=== PATIENT | female | born 1945 | race Caucasian/White ===

== ENCOUNTER 2017-11-01 11:16 | Emergency (ER) | payer OTHER ==
[~2017-11-01 11:16] MED LIST: DESL5TAB38 PO; EZET10 PO; LOSA1TAB42 PO; OMEP20CA10 PO
[2017-11-01] MEDS ORDERED: BENZONATATE 100 MG CAPSULE PO ONE (11:32)
== END 2017-11-01 12:12 | disposition home or self-care (01) ==
LOC: EDH 11:16
DX: J06.9 Acute upper respiratory infection, unspecified (principal); I10 Essential (primary) hypertension
CPT/HCPCS: 71046; 87880

== ENCOUNTER 2018-03-02 11:36 | Emergency (ER) | payer OTHER ==
[2018-03-02] MEDS ORDERED: ASPIRIN 325 MG TABLET ONE (11:41)
[2018-03-02] MEDS ORDERED: DEXAMETHASONE SOD PHOSPHATE 10MG/ML 1ML VIAL ONE (11:55)
[2018-03-02] MEDS ORDERED: SODIUM CHLORIDE 0.9% 50 ML IV ONE (11:56)
[2018-03-02] MEDS ORDERED: CEFTRIAXONE SODIUM 1 GM ONE (11:56)
[2018-03-02] MEDS ORDERED: IPRATROPIUM/ALBUTEROL SULFATE 3 ML SOLUTION IH ONE (12:12)
[2018-03-02 12:17] LABS: BASOPHILS % (AUTO) 0.6 % (0.0-5.0); EOSINOPHILS % (AUTO) 1.2 % (0.0-8.0); LYMPHOCYTES % (AUTO) 29.4 % (21.0-51.0); MEAN CORPUSCULAR HEMOGLOBIN 31.8 pg (27.0-33.0); MEAN CORPUSCULAR VOLUME 90.8 fL (79-99); MONOCYTES % (AUTO) 8.6 % (3.0-13.0); NEUTROPHILS % (AUTO) 60.2 % (40.0-77.0); PLATELET COUNT (AUTO) 186 K/uL (130-400); RED BLOOD CELL COUNT(AUTO) 4.19 MIL/uL (4.00-5.50); RED CELL DISTRIBUTION WIDTH 12.6 % (11.0-15.5); WHITE BLOOD COUNT (AUTO) 5.8 K/uL (4.8-10.8)
[2018-03-02 12:22] LABS: CREATININE 0.6 mg/dL (0.5-1.5); POTASSIUM 3.8 mmol/L (3.5-5.1)
[2018-03-02 12:29] LABS: ALBUMIN 4.1 g/dL (3.5-5.0); BILIRUBIN,TOTAL 0.6 mg/dL (0.2-1.0)
[2018-03-02 12:34] LABS: PARTIAL THROMBOPLASTIN TIME 28.6 SEC (26.3-35.5); PROTHROMBIN TIME 10.5 SEC (9.6-11.6)
[2018-03-02 13:00] LABS: B-TYPE NATRIURETIC PEPTIDE 30 pg/mL (0-100)
== END 2018-03-02 13:44 | disposition home or self-care (01) ==
LOC: EDH 11:36
DX: J20.9 Acute bronchitis, unspecified (principal); R07.89 Other chest pain; I10 Essential (primary) hypertension
CPT/HCPCS: 36415; 71046; 80053; 82550; 83880; 84484; 85025; 85610; 85730; 93005; 94640; 94761; 96374; 96375; 99285; J0696; J1100

== ENCOUNTER 2018-03-21 01:31 | Emergency (ER) | payer OTHER ==
[2018-03-21] MEDS ORDERED: IPRATROPIUM/ALBUTEROL SULFATE 3 ML SOLUTION IH ONE (02:02)
[2018-03-21 02:11] LABS: BASOPHILS % (AUTO) 0.5 % (0.0-5.0); EOSINOPHILS % (AUTO) 1.3 % (0.0-8.0); HEMATOCRIT 38.6 % (36-48); LYMPHOCYTES % (AUTO) 30.6 % (21.0-51.0); MEAN CORPUSCULAR HEMOGLOBIN 31.6 pg (27.0-33.0); MEAN CORPUSCULAR HGB CONC 34.6 g/dL (32.0-36.0); MEAN CORPUSCULAR VOLUME 91.3 fL (79-99); MONOCYTES % (AUTO) 7.1 % (3.0-13.0); NEUTROPHILS % (AUTO) 60.5 % (40.0-77.0); NUCLEATED RED BLOOD CELLS 0.1 % (0.0-0.19); PLATELET COUNT (AUTO) 151 K/uL (130-400); RED BLOOD CELL COUNT(AUTO) 4.23 MIL/uL (4.00-5.50); WHITE BLOOD COUNT (AUTO) 5.5 K/uL (4.8-10.8)
[2018-03-21 02:26] LABS: CREATININE 0.6 mg/dL (0.5-1.5); POTASSIUM 3.7 mmol/L (3.5-5.1)
[2018-03-21 02:31] LABS: B-TYPE NATRIURETIC PEPTIDE 28 pg/mL (0-100)
[2018-03-21 02:32] LABS: ALBUMIN 4.2 g/dL (3.5-5.0); BILIRUBIN,TOTAL 0.7 mg/dL (0.2-1.0); TOTAL PROTEIN, SERUM 8.2 g/dL (6.0-8.3)
[2018-03-21] MEDS ORDERED: BENZONATATE 100 MG CAPSULE PO ONE (02:55)
[2018-03-21 03:36] LABS: APPEARANCE,URINE Clear (CLEAR); BILIRUBIN,URINE Negative (NEGATIVE); COLOR,URINE Yellow (YELLOW); GLUCOSE, URINE (UA) Negative (NEGATIVE); KETONES,URINE Negative (NEGATIVE); LEUKOCYTE ESTERASE ,URINE Negative (NEGATIVE); NITRATE,URINE Negative (NEGATIVE); OCCULT BLOOD,URINE Negative (NEGATIVE); PROTEIN,URINE Negative (NEGATIVE); UROBILINOGEN,URINE 0.2 mg/dL (0.2-1.0)
== END 2018-03-21 03:55 | disposition home or self-care (01) ==
LOC: EDH 01:31
DX: R05 Cough (principal); I10 Essential (primary) hypertension; E78.5 Hyperlipidemia, unspecified; Z98.890 Other specified postprocedural states
CPT/HCPCS: 36415; 71045; 80053; 81003; 83880; 84484; 85025; 87804; 93005; 94640

== ENCOUNTER → 2020-03-15 | Outpatient (CLI) | payer OTHER ==
[~2020-03-15] MED LIST changes: -EZET10 PO; +EZET10TA13 PO; -OMEP20CA10 PO; +OMEP20CA12 PO
== END | disposition home or self-care (01) ==
LOC: RAH 11:11
PROVIDERS: ATTEND Internal Medicine Cardiovascular Disease
DX: Z13.6 Encounter for screening for cardiovascular disorders (principal)
CPT/HCPCS: 75571

== ENCOUNTER → 2025-01-27 | Outpatient (CLI) | payer OTHER ==
[~2025-01-27] MED LIST changes: -EZET10TA13 PO; +EZET10TA81 PO
[2025-01-27] MEDS: REGADENOSON 0.4 MG/5 ML PF SYG IVP ONE (11:09)
--- NOTE | 2025-01-28 09:27 | HMCSR ---
APPROVED REPORT Height: 5 ft 1in Weight: 124 lbs TEST INDICATIONS CAD The imaging protocol used to acquire images was Rest Tc-99m/stress Tc-99m 1 day Consent: The procedure was explained and understood by the patient. Informerd consent was witnessed Michelet Yeboah RN First, low dose rest was performed then high dose stress. RESTING DATA: The resting ekg shows: NSR Rest SPECT myocardial perfusion imaging was performed in supine position 66 minutes following the int ravenous injection of 10.5 mCi of Tc-99 Sestamibi. Time of rest injection: 08:22: Date: 01/27/2025 Time of rest imagin:28: Date: 01/27/2025 PHARMACOLOGIC STRESS: Pharmacologic stress test was performed by injecting regadenoson 0.4 mg IV push followed by the intra venous injection of 32.4 mCi of Tc-99 Sestamibi. Time of stress injection: 09:55: Date: 01/27/2025 Time of stress imagin:02: Date: 01/27/2025 Heart Rate at time of stress injection: 61 bpm. Gated Stress SPECT was performed 67 minutes after stress injection. The images were gated to evaluate regional wall motion and calculate left ventricular ejection fracti on. STRESS DETAILS Reason for Termination: Infusion complete Stress Symptoms: Dyspnea Max HR Achieved: 95 bpm % of APMHR Achieved: 67 Max Blood Pressure: 183/60 mmHg Stress ECG: NSR Conclusion No ischemia No infarct LV ejection fraction greater than 70% Normal LV wall motion Normal LV size at rest and stress No evidence of increased lung uptake
== END | disposition home or self-care (01) ==
LOC: SHCH 07:45
PROVIDERS: ATTEND Internal Medicine Cardiovascular Disease
DX: I25.10 Atherosclerotic heart disease of native coronary artery without angina pectoris (principal); R06.00 Dyspnea, unspecified
CPT/HCPCS: 78452; 93017; J2785; A9500 ×2